=== PATIENT | female | born 1935 | race Caucasian/White ===

== ENCOUNTER 2020-01-17 03:39 | Inpatient (IN) | payer MEDICARE ==
[~2020-01-17] VITALS: Ht 162.6 cm; Wt 78.1 kg
[2020-01-17 05:25] VITALS: BP 142/78
--- NOTE | 2020-01-17 06:01 | HPEPDOC ---
[facility] Medical History & Physical Date of Admission Jan 17, 2020 Date of Service: Jan 17, 2020 Attending Physician: CANDELARIA LLANES MD History and Physical TIME OF SERVICE: 610am CHIEF COMPLAINT: dizziness HISTORY OF PRESENT ILLNESS: This is an 84 yr old F who presented to [facility] with c/o of dizziness and feeling like she is about to pass out. Prior to falling down she sat down, but she didn't lose consciousness. She has a history of vertigo, but reports that the dizzy spell felt different. She denies having associated chest pain or palpitations. Every night, for she goes to bed she puts on a nitroglycerin patch on her chest because she has "angina". Prior to arrival at the hospital. She puts her nitroglycerin patch on and decided to take 2 nitroglycerin pills to see if that help her symptoms. When EMS arrived at her house, they also gave her an extra dose of nitroglycerin. On arrival to [facility], her blood pressure was 73/48 and she was noted to have new onset atrial fibrillation with a heart rate ranging from 70-100. Her blood work was only remarkable for hemoglobin of 11.5, potassium of 3.4 glucose of 129, a BUN of 31 and a BNP of 1232. The rest of the blood work including CBC, CMP, d-dimer and troponin were unrevealing. The chest x-ray showed cardiomegaly with prominent interstitial lung markings, likely due to COPD. The Nitropaste was removed. She was given IV fluids and her systolic blood pressure improved to the 90s. The providers at [facility] requested transfer for higher level of care. REVIEW OF SYSTEMS: 12 point review of systems negative except as listed in HPI + chronic left lower extremity swelling PAST MEDICAL/ SURGICAL HISTORY: CAD/angina Diverticulitis Vertigo Chronic HTN Dyslipidemia Appendectomy Cataract surgery Hysterectomy Umbilical hernia repair SOCIAL HISTORY: She doesn't smoke She does drink alcohol FAMILY HISTORY: n/a ALLERGIES: Please see below HOME MEDICATIONS: Please see below PHYSICAL EXAMINATION: Vitals pending GEN: well-nourished / well developed/ NAD INTEGUMENT: not flushed/ not jaundice HEENT: NCAT / mucus membranes moist and pink CVS: RRR/NMRG/ radial a pulses intact / LLE edema LUNGS: able to speak full sentences without stopping to take a breath / lungs are clear to auscultation bilaterally on room air ABDOMEN: Contour ( obese) / soft & not tender with palpation MSK/EXTREMITIES: range of motion intact in all 4 extremities NEURO: CN 2-12 are grossly intact / speech is not dysarthric PSYCH: alert and oriented to person place and time/ able to understand and follow all commands LABORATORY DATA: see HPI IMAGING: see HPI ASSESSMENT: Ms. Arauz is an 84-year-old with history of angina, diverticulitis, vertigo, hypertension, dyslipidemia, and multiple surgeries, who was transferred for management of hypotension in the setting of taking excessive amounts of nitro and dizziness, likely due to new onset atrial fibrillation. PLAN: 1. Hypotension 2/2 excessive nitro use at her baseline she has HTN Plan: admit to PCU / c/w IVF / hold nitro products, hold amlodipine, lisinopril and HTCZ 2. New onset Atrial Fibrillation Possibly due to cardiomyopathy bc her BNP was elevated vs thyroid disorder CHADS VASC Score to determine risk of stroke at least 4 based on current info Plan: telemetry / f/u serial trops, TSH / EKG / pending Echo / the day time team can start treatment dose lovenox or heparin once the patient's weight and vitals have been checked 3. CAD ? /angina Plan: ASA 4. Vertigo Plan: meclizine 5. Dyslipidemia Plan: rosuvastatin DVT PROPHYLAXIS: pending updated weight DISPOSITION: home after at least 2 midnight's stay Home Medications Scheduled Apixaban (Eliquis) 5 Mg Tablet, 5 MG PO BID Cholecalciferol (Vitamin D3) (Vitamin D3) 1,000 Unit Tablet, 1,000 UNITS PO DAILY Cyanocobalamin (Vitamin B-12) (Vitamin B-12) 100 Mcg Tablet, 100 MCG PO QHS Latanoprost/Pf (Latanoprost 0.005% Eye Drop) 7.5 Ml Drops, 1 DROP OU QHS Propranolol Hcl (Propranolol HCl) 60 Mg Tablet, 60 MG PO BID Rosuvastatin Calcium (Rosuvastatin Calcium) 5 Mg Tablet, 5 MG PO QHS Scheduled PRN Meclizine HCl (Meclizine HCl) 25 Mg Tablet, 25 MG PO TID PRN for DIZZINESS Allergies Coded Allergies: Sulfa (Sulfonamide Antibiotics) (Verified Allergy, Intermediate, rash, 01/17/20) A-FIB/CHADSVASC A-FIB History Current/History of A-Fib/PAF?: Yes Current PO Anticoag Therapy: Yes CANDELARIA LLANES MD Jan 17, 2020 06:01
[2020-01-17] MEDS ORDERED: MOM 30ML SUSPENSION UDC PO PRN (06:15)
[2020-01-17] MEDS ORDERED: ACETAMINOPHEN TAB 650MG DOSE (2X325MG) PO PRN (06:15)
[2020-01-17] MEDS ORDERED: MAALOX 30 ML SUSP *UDC PO PRN (06:15)
[2020-01-17] MEDS ORDERED: AMLO1TAB24 PO ×2 (06:24→07:51)
[2020-01-17] MEDS ORDERED: VITA1TAB35 PO (06:24)
[2020-01-17] MEDS ORDERED: MECL-86 PO (06:24)
[2020-01-17] MEDS ORDERED: LATA0.0015 OU (06:24)
[2020-01-17] MEDS ORDERED: LISI20TA35 PO (06:24)
[2020-01-17] MEDS ORDERED: VITA50005 PO (06:24)
[2020-01-17] MEDS ORDERED: ROSU5TAB5 PO (06:24)
[2020-01-17] MEDS ORDERED: NITR0.2D5 TD (06:32)
[2020-01-17] MEDS ORDERED: ECOT81TA5 PO (06:32)
[2020-01-17] MEDS ORDERED: D31000TA2 PO (06:32)
[2020-01-17] MEDS ORDERED: NS 1,000 ML IV SCH (06:45)
[2020-01-17] MEDS ORDERED: MECLIZINE 25 MG TABLET PO PRN (07:00)
[2020-01-17 07:09] LABS: HEMATOCRIT 34.9 % (36.0-47.0); HEMOGLOBIN 11.5 g/dl (12.0-15.5); MEAN CORPUSCULAR VOLUME 91.1 fl (80.0-96.0); PLATELET COUNT, AUTOMATED 158 10^3/uL (150-450); RED BLOOD COUNT 3.83 10^6/uL (4.00-5.40); WHITE BLOOD COUNT 5.1 10^3/uL (4.0-10.0)
[2020-01-17 07:19] VITALS: BP 144/66
[2020-01-17 07:19] LABS: INR 1.02; PROTHROMBIN TIME 13.1 SECONDS (11.8-14.0)
[2020-01-17 07:51] LABS: ALBUMIN 3.1 GM/DL (3.2-5.2); ALT/SGPT 13 U/L (12-78); BILIRUBIN,TOTAL 0.4 MG/DL (0.2-1.0); BLOOD UREA NITROGEN 21 MG/DL (7-18); CALCIUM LEVEL 8.5 MG/DL (8.8-10.2); CARBON DIOXIDE LEVEL 25 MEQ/L (21-32); CHLORIDE LEVEL 112 MEQ/L (98-107); CREATININE FOR GFR 0.63 MG/DL (0.55-1.30); GLOMERULAR FILTRATION RATE > 60.0 (>32); GLUCOSE, FASTING 98 MG/DL (70-100); PHOSPHORUS LEVEL 3.7 MG/DL (2.5-4.9); POTASSIUM SERUM 3.3 MEQ/L (3.5-5.1); SODIUM LEVEL 142 MEQ/L (136-145); TOTAL PROTEIN 5.7 GM/DL (6.4-8.2); TROPONIN I 0.03 NG/ML (< 0.10)
[2020-01-17] MEDS ORDERED: PROP60TA14 PO (07:55)
--- NOTE | 2020-01-17 11:11 | IPNPDOC ---
Text Note Date of Service The patient was seen on 01/17/20. NOTE SUBJECTIVE: Does not complain of any dizziness or nausea at present . Says has not been out of bed yet. She is sad an emotional as she lost her 1 1/2 month ago. However says her son and grand daughter just live across the street and they are always in and out of the house so she does not feel isolated or alone. Last night she went to bed at about 9:30 pm as she was not feeling well slightly dizzy, weak and tired. Put on her nitro patch around 10pm. She continued to feel more dizzy and weak and thought it could be her angina though did not have any chest pain so took 2 s/l nitros. After that she felt she was going to pass out. At that point then she called family and ems was called. Got another nitro from EMS. On arrival to [facility], her blood pressure was 73/48 and she was noted to have new onset atrial fibrillation with a heart rate ranging from 70-100. PHYSICAL EXAMINATION: Vitals As below GEN: well-nourished / well developed/ NAD INTEGUMENT: not flushed/ not jaundice HEENT: NCAT / mucus membranes moist and pink CVS: RRR/NMRG/ radial a pulses intact / LLE edema LUNGS: able to speak full sentences without stopping to take a breath / lungs are clear to auscultation bilaterally on room air ABDOMEN: Contour ( obese) / soft & not tender with palpation MSK/EXTREMITIES: range of motion intact in all 4 extremities NEURO: CN 2-12 are grossly intact / speech is not dysarthric PSYCH: alert and oriented to person place and time/ able to understand and follow all commands LABORATORY DATA: Noted ASSESSMENT and PLAN: Ms. Arauz is an 84-year-old with history of angina, diverticulitis, vertigo, hypertension, dyslipidemia, and multiple surgeries, who was transferred for management of hypotension in the setting of taking excessive amounts of nitro and dizziness, likely due to new onset atrial fibrillation. Hypotension 2/2 excessive nitro use at her baseline she has HTN hold nitro products, hold amlodipine, lisinopril and HTCZ New onset Atrial Fibrillation 1 EKG from outside hospital showed possible Afib . second EKG 2 hours later from there showed sinus rhythm. Here on telemetry she has been in sinus rhythm will get an EKG here. Echo start on eliquis CAD ? /angina ASA Vertigo meclizine Dyslipidemia statin DVT prophylaxis: started on eliquis VS,Fishbone, I+O VS, Fishbone, I+O Laboratory Tests 01/17/20 06:56 Vital Signs Date Time Temp Pulse Resp B/P (MAP) Pulse Ox O2 Delivery O2 Flow Rate FiO2 01/17/20 07:19 96.5 54 18 144/66 (92) 99 Nasal Cannula 2.0 JIGAR BEAVERS MD Jan 17, 2020 11:11
[2020-01-17 12:00] VITALS: BP 158/80
[2020-01-17] MEDS ORDERED: POTASSIUM CHLORIDE 10 MEQ SR TABLET PO ONE (12:00)
[2020-01-17] MEDS: APIXABAN 5 MG TAB (ELIQUIS) PO SCH ×2 (12:36→20:56)
[2020-01-17 16:00] VITALS: BP 125/59
[2020-01-17] MEDS: amLODIPine 5 MG TAB PO SCH ×2 (16:00→20:56)
[2020-01-17 20:00] VITALS: BP 133/85
[2020-01-17] MEDS ORDERED: ASPIRIN 81 MG ENTERIC TAB PO SCH (21:00)
[2020-01-17] MEDS ORDERED: LATANOPROST 0.005% OPHTH SOLN 2.5 ML OU SCH (21:00)
[2020-01-17] MEDS ORDERED: ROSUVASTATIN 10 MG TAB (CRESTOR) PO SCH (21:00)
[2020-01-18] VITALS: BP 133/71
[2020-01-18 04:00] VITALS: BP 125/58
[2020-01-18 04:20] LABS: HEMOGLOBIN 10.9 g/dl (12.0-15.5); MEAN CORPUSCULAR HEMOGLOBIN 30.1 pg (27.0-33.0); MEAN CORPUSCULAR VOLUME 91.2 fl (80.0-96.0); PLATELET COUNT, AUTOMATED 156 10^3/uL (150-450); RED BLOOD COUNT 3.62 10^6/uL (4.00-5.40)
[2020-01-18 04:40] LABS: BLOOD UREA NITROGEN 17 MG/DL (7-18); CALCIUM LEVEL 8.3 MG/DL (8.8-10.2); CARBON DIOXIDE LEVEL 25 MEQ/L (21-32); CHLORIDE LEVEL 112 MEQ/L (98-107); CREATININE FOR GFR 0.55 MG/DL (0.55-1.30); GLOMERULAR FILTRATION RATE > 60.0 (>32); GLUCOSE, FASTING 94 MG/DL (70-100); POTASSIUM SERUM 3.7 MEQ/L (3.5-5.1); SODIUM LEVEL 141 MEQ/L (136-145)
[2020-01-18 07:53] VITALS: BP 122/82
[2020-01-18] MEDS ORDERED: ENOXAPARIN 40MG/0.4ML SYRINGE (J1650 PER 10MG) SC SCH (09:00)
[2020-01-18] MEDS: APIXABAN 5 MG TAB (ELIQUIS) PO SCH (09:21)
[2020-01-18 09:23] VITALS: BP 122/82
[2020-01-18] MEDS: amLODIPine 5 MG TAB PO SCH (09:23)
[2020-01-18] MEDS ORDERED: SLF 3 ML SYR IV PRN (11:30)
[2020-01-18 12:00] VITALS: BP 128/65
[2020-01-18] MEDS ORDERED: SLF 3 ML SYR IV SCH (14:00)
[2020-01-18] MEDS ORDERED: ELIQ5TAB PO (14:35)
--- NOTE | 2020-01-18 18:30 | ECGEPIP ---
[facility] Test Date: 2020-01-18 Pat Name: AMNA TORRES Department: Room: [place] [address] Gender: Female Facility Practice Specialist: : [id number] Requested By: JIGAR BEAVERS Order Number: [id number] Reading MD: Zheng Oreilly Measurements Intervals [place] Rate: 64 P: 79 PA: 200 QRS: 16 QRSD: 89 T: 30 QT: 409 QTc: 423 Interpretive Statements SINUS RHYTHM NONSPECIFIC T-WAVE ABNORMALITY BORDERLINE LOW VOLTAGE QRS COMPLEXES IN THE CHEST LEADS NO PRIOR TRACING Electronically Signed on 01-18-2020 18:30:33 EDT by Zheng Oreilly
--- NOTE | 2020-01-19 00:34 | DS.PDOC ---
Discharge Summary General Date of Admission Jan 17, 2020 at 05:25 Date of Discharge 01/18/20 Discharge Summary PROCEDURES PERFORMED DURING STAY: [None]. DISCHARGE DIAGNOSES: New onset Atrial Fibrillation Hypotension from excessive S/L nitro intake SECONDARY DIAGNOSIS: CAD/Angina, diverticulosis, vertigo, hypertension, dyslipidemia COMPLICATIONS/CHIEF COMPLAINT: Hypotension, New On Set A Fib. HOSPITAL COURSE: Ms. Arauz is an 84-year-old with history of angina, diverticulitis, vertigo, hypertension, dyslipidemia, and multiple surgeries, who was transferred for management of hypotension in the setting of taking excessive amounts of nitro and dizziness, likely due to new onset atrial fibrillation. Hypotension 2/2 excessive nitro use at her baseline she has HTN continue lisinopril and HCTZ continue propranolol. Stopped amlodipine New onset Atrial Fibrillation EMS strips also showed possible a fib seen at 11:30 pm of 01/16/20. 1st EKG from outside hospital showed Afib. Second EKG 4 hours later from there showed sinus rhythm. Here on telemetry she has been in sinus rhythm EKG here shows sinus rhythm Echo as outpatient. started on eliquis, stopped ASA. CAD ? /angina ASA Vertigo meclizine Dyslipidemia statin DVT prophylaxis: started on eliquis DISCHARGE MEDICATIONS: Please see below. ALLERGIES: Please see below. PHYSICAL EXAMINATION ON DISCHARGE: VITAL SIGNS: Please see below. GEN: well-nourished / well developed/ NAD INTEGUMENT: not flushed/ not jaundice HEENT: NCAT / mucus membranes moist and pink CVS: RRR/NMRG/ radial a pulses intact / LLE edema LUNGS: able to speak full sentences without stopping to take a breath / lungs are clear to auscultation bilaterally on room air ABDOMEN: Contour ( obese) / soft & not tender with palpation MSK/EXTREMITIES: range of motion intact in all 4 extremities NEURO: CN 2-12 are grossly intact / speech is not dysarthric PSYCH: alert and oriented to person place and time/ able to understand and follow all commands LABORATORY DATA: Please see below. ACTIVITY: [As tolerated]. DIET: As tolerated DISPOSITION: 01 Home, Self-Care. DISCHARGE INSTRUCTIONS: Follow up with PMD in 1 week. DISCHARGE CONDITION: [Stable]. TIME SPENT ON DISCHARGE: 35 minutes. Vital Signs/I&Os Vital Signs Date Time Temp Pulse Resp B/P (MAP) Pulse Ox O2 Delivery O2 Flow Rate FiO2 7/5/20 12:00 97.2 73 18 128/65 (86) 93 Room Air 01/18/20 07:53 2.0 I&O- Last 24 Hours up to 6 AM 01/18/20 07:00 Intake Total 1050 ml Output Total 1490 ml Balance -440 ml Laboratory Data Labs 24H Laboratory Tests 2 01/18/20 03:49: Nucleated Red Blood Cells % (auto) 0.0, Anion Gap 4L, Glomerular Filtration Rate > 60.0, Calcium Level 8.3L CBC/BMP Laboratory Tests 01/18/20 03:49 Discharge Medications Scheduled Apixaban (Eliquis) 5 Mg Tablet, 5 MG PO BID Cholecalciferol (Vitamin D3) (Vitamin D3) 1,000 Unit Tablet, 1,000 UNITS PO DA NIA, (Reported) Cyanocobalamin (Vitamin B-12) (Vitamin B-12) 100 Mcg Tablet, 100 MCG PO QHS, (Reported) Latanoprost/Pf (Latanoprost 0.005% Eye Drop) 7.5 Ml Drops, 1 DROP OU QHS, (Reported) Propranolol Hcl (Propranolol HCl) 60 Mg Tablet, 60 MG PO BID, (Reported) Rosuvastatin Calcium (Rosuvastatin Calcium) 5 Mg Tablet, 5 MG PO QHS, (Reported) Scheduled PRN Meclizine HCl (Meclizine HCl) 25 Mg Tablet, 25 MG PO TID PRN for DIZZINESS, (Reported) Allergies Coded Allergies: Sulfa (Sulfonamide Antibiotics) (Verified Allergy, Intermediate, rash, 01/17/20) JIGAR BEAVERS MD Jan 19, 2020 00:33
== END 2020-01-18 16:00 | disposition home or self-care (01) | DRG 312 ==
LOC: M PCU 05:25
PROVIDERS: ADMIT Internal Medicine; ATTEND Internal Medicine Nephrology
DX: I95.2 Hypotension due to drugs (principal); I48.91 Unspecified atrial fibrillation; R42 Dizziness and giddiness; K57.30 Diverticulosis of large intestine without perforation or abscess without bleeding; I10 Essential (primary) hypertension; E78.5 Hyperlipidemia, unspecified; I25.10 Atherosclerotic heart disease of native coronary artery without angina pectoris; Z79.899 Other long term (current) drug therapy; Z88.2 Allergy status to sulfonamides; Z79.82 Long term (current) use of aspirin

== ENCOUNTER 2023-08-08 15:09 | Emergency (ER) | payer MEDICARE ==
[~2023-08-08] VITALS: Ht 162.6 cm; Wt 68.2 kg
[~2023-08-08 15:09] MED LIST: AMLO1TAB24 PO; ECOT81TA5 PO; ELIQ5TAB PO; ERGO500029 PO; LATA0.0015 OU; LISI20TA35 PO; MECL-86 PO; NITR0.2D5 TD; PROP60TA14 PO; ROSU5TAB5 PO; VITA100093 PO; VITA1TAB35 PO
[2023-08-08 16:14] LABS: HEMATOCRIT 33.6 % (36.0-47.0); HEMOGLOBIN 10.9 g/dl (12.0-15.5); MEAN CORPUSCULAR HGB CONC 32.4 g/dl (32.0-36.5); MEAN CORPUSCULAR VOLUME 98.5 fl (80.0-96.0); PLATELET COUNT, AUTOMATED 283 10^3/uL (150-450); RED BLOOD COUNT 3.41 10^6/uL (4.00-5.40); WHITE BLOOD COUNT 6.5 10^3/uL (4.0-10.0)
[2023-08-08 16:26] LABS: INR 1.01
[2023-08-08 16:27] LABS: PARTIAL THROMBOPLASTIN TIME 31.3 SECONDS (24.8-34.2)
[2023-08-08] MEDS ORDERED: ISOVUE-370 76% 100ML VIAL As Ordered ONE (16:31)
[2023-08-08 17:16] VITALS: BP 184/80; TEMP 96.5; O2SAT 97
== END 2023-08-08 18:02 | disposition home or self-care (01) ==
LOC: EDBD 15:09 → M ED 15:09
DX: S20.212A Contusion of left front wall of thorax, initial encounter (principal); H81.4 Vertigo of central origin; M54.50 Low back pain, unspecified; Z79.01 Long term (current) use of anticoagulants; Z88.2 Allergy status to sulfonamides; Z79.899 Other long term (current) drug therapy; Y92.9 Unspecified place or not applicable; Y93.89 Activity, other specified; Y99.9 Unspecified external cause status
CPT/HCPCS: 36415; 71275; 80047; 85027; 85610; 85730; 99284; Q9967